=== PATIENT | female | born 1935 | race Caucasian/White ===

== ENCOUNTER → 2019-06-08 09:30 | Outpatient (BNVA) | payer MEDICARE, MEDICAID, SELFPAY | PROVIDERS: PCP Family Medicine; Referring Provider Family Medicine; Visit Provider Specialist | DX: M25.532 Pain in left wrist (principal) | CPT/HCPCS: 73110 ==

== ENCOUNTER 2019-06-08 10:48 | Outpatient (CLI) | payer MEDICARE, MEDICAID, SELFPAY | END 2019-06-08 10:49 | disposition home or self-care (01) | LOC: SPT 10:49 | PROVIDERS: PCP Family Medicine; Visit Provider Specialist | DX: S52.572D Other intraarticular fracture of lower end of left radius, subsequent encounter for closed fracture with routine healing (principal); X58.XXXD Exposure to other specified factors, subsequent encounter | CPT/HCPCS: L3982 ==

== ENCOUNTER → 2019-06-29 10:23 | Outpatient (BNVA) | payer MEDICARE, MEDICAID, SELFPAY | PROVIDERS: PCP Family Medicine; Visit Provider Specialist | DX: S62.002A Unspecified fracture of navicular [scaphoid] bone of left wrist, initial encounter for closed fracture (principal); X58.XXXA Exposure to other specified factors, initial encounter | CPT/HCPCS: 73110 ==

== ENCOUNTER → 2019-07-16 10:27 | Outpatient (BNVA) | payer MEDICARE, MEDICAID, SELFPAY | PROVIDERS: PCP Family Medicine; Visit Provider Specialist | DX: S62.015A Nondisplaced fracture of distal pole of navicular [scaphoid] bone of left wrist, initial encounter for closed fracture (principal); S52.572A Other intraarticular fracture of lower end of left radius, initial encounter for closed fracture; X58.XXXA Exposure to other specified factors, initial encounter | CPT/HCPCS: 73110 ==

== ENCOUNTER 2019-10-25 06:02 | Inpatient (IN) | payer MEDICARE, MEDICAID, SELFPAY ==
[2019-10-25] VITALS (32 sets, daily range): BP systolic 101–206; BP diastolic 47–104; PULSE 69–85; RESP 10–24; TEMP 36.3–37.4; O2SAT 75–100
--- NOTE | 2019-10-25 | SCC_ITS ---
Procedure Done: Aborted right bipolar hip arthroplasty with open reduction of intertrochanteric subtrochanteric and neck fractures and conversion to Valery trochanteric gamma nail 99.7 seconds of fluoroscopic guidance, for a cumulative dose of 11.35 mGy, was provided to Dr. Barnett by the radiology department. C-arm images of the RIGHT hip were saved for the patient's permanent record. ADONAYD
--- NOTE | 2019-10-25 06:08 | CTR_ITS ---
PROCEDURE INFORMATION: Exam: CT Head Without Contrast Exam date and time: 10/25/2019 8:25 AM Age: 84 years old Clinical indication: Injury or trauma; Fall; Initial encounter; Blunt trauma (contusions or hematomas); Patient HX: Best images possible TECHNIQUE: Imaging protocol: Computed tomography of the head without contrast. Radiation optimization: All CT scans at this facility use at least one of these dose optimization techniques: automated exposure control; mA and/or kV adjustment per patient size (includes targeted exams where dose is matched to clinical indication); or iterative reconstruction. COMPARISON: CT head wo con* [id number] 03/01/2016 5:29 PM RADIATION DOSE METRICS: Total DLP: 2196.56 mGy-cm FINDINGS: Brain: There is moderate hypodensity of the periventricular white matter. This is nonspecific, but a likely cause is small vessel ischemic disease. Small chronic lacunar infarct in the right thalamic region. Small chronic lacunar infarct in the left subinsular region. Small to moderate area of encephalomalacia in the right cerebellar hemisphere, consistent with remote insult (such as chronic infarct). Small area of encephalomalacia in the left cerebellar hemisphere, consistent with remote insult (such as chronic infarct). No abnormal intra-axial or extra-axial fluid collections are identified. There is no midline shift. No intracranial hemorrhage identified. Ventricles: The ventricles and sulci are moderately and diffusely prominent, compatible with global brain volume loss. Bones/joints: Unremarkable as visualized. Sinuses: Visualized sinuses are unremarkable. No fluid levels. Mastoid air cells: Visualized mastoid air cells are well aerated. Soft tissues: Moderate scalp hematoma in the high right frontal region. CT/CT head wo con* [id number] IMPRESSION: 1. No acute intracranial process identified. Radiation Dose CTDIVOL = (mGy): DLP = 2196.56 (mGy-cm)
--- NOTE | 2019-10-25 06:10 | XRR_ITS ---
PROCEDURE INFORMATION: Exam: XR Right Hip with Pelvis when Performed Exam date and time: 10/25/2019 7:31 AM Age: 84 years old Clinical indication: Injury or trauma; Fall; Initial encounter; Blunt trauma (contusions or hematomas); Right; Hip; Additional info: Fall/ possible hip FX TECHNIQUE: Imaging protocol: XR Right hip with pelvis when performed. Views: 2 or 3 views. COMPARISON: CT abdomen pelvis wo con [id number] 06/05/2017 11:47 PM FINDINGS: Bones/joints: There is an intertrochanteric fracture of the right femur. Severe varus angulation. Marked superior displacement of the distal fragment relative to the proximal fragment. No hip dislocation. Soft tissues: No subcutaneous gas or radiopaque foreign body identified. XR/XR hip RT 2-3V wo/w pel* [id number] IMPRESSION: 1. There is an intertrochanteric fracture of the right femur. Severe varus angulation. Marked superior displacement of the distal fragment relative to the proximal fragment.
--- NOTE | 2019-10-25 06:18 | CTR_ITS ---
PROCEDURE INFORMATION: Exam: CT Cervical Spine Without Contrast Exam date and time: 10/25/2019 8:25 AM Age: 84 years old Clinical indication: Injury or trauma; Fall; Initial encounter; Blunt trauma; Patient HX: Best images possible TECHNIQUE: Imaging protocol: Computed tomography images of the cervical spine without contrast. Radiation optimization: All CT scans at this facility use at least one of these dose optimization techniques: automated exposure control; mA and/or kV adjustment per patient size (includes targeted exams where dose is matched to clinical indication); or iterative reconstruction. COMPARISON: CT Cervical Spine wo* [id number] 09/08/2015 6:41 PM RADIATION DOSE METRICS: Total DLP: 591.8 mGy-cm FINDINGS: Vertebrae: There is reversal of the normal cervical lordosis. This may be positional or due to muscle spasm. There is otherwise normal alignment of the cervical spine. No fractures or dislocations identified. Vertebral body heights are well maintained throughout. Discs/Spinal canal/Neural foramina: Mild degenerative disc disease at C5-C6 and C6-C7. On the right side, mild facet degenerative joint disease at C3-C4 and C4-C5. On the left side, mild facet degenerative joint disease at C2-C3, C4-C5, C5-C6, and C6-C7. Facet joint fusion at C7-T1. Mild facet degenerative joint disease at T1-T2. The bony spinal canal is patent. Soft tissues: No prevertebral soft tissue swelling identified. Lungs: Lung apices are unremarkable as visualized. CT/CT cervical spin wo con* [id number] IMPRESSION: 1. No fractures or dislocations identified involving the cervical spine. Radiation Dose CTDIVOL = (mGy): DLP = 591.8 (mGy-cm)
[2019-10-25] MEDS: HYDROmorphone 1 mg/mL INJ 1 mL 0.5 MG IVP ×3 (06:25→10:34)
[2019-10-25] MEDS: ondansetron 2 mg/ML SDV 2 mL 4 MG IVP (06:25)
[2019-10-25 06:34] LABS: Hematocrit 36.6 % (37.0-47.0); Hemoglobin 11.6 g/dL (11.5-15.3); Mean Corpuscular HGB Conc 31.7 g/dL (30.0-36.0); Mean Corpuscular Hemoglobin 29.4 pg (28.0-34.0); Mean Corpuscular Volume 92.7 fL (81-99); Mean Platelet Volume 10.2 fL (7.4-10.4); Platelet Count 178 10^3/cmm (130-400); Red Blood Count 3.95 10^6/uL (4.1-5.3); Red Cell Distribution Width 12.6 % (12.1-15.1); White Blood Count 7.2 10^3/uL (4.0-10.0)
[2019-10-25 06:39] LABS: INR 0.99 (0.8-1.2)
[2019-10-25 06:44] LABS: Alanine Aminotransferase 10 U/L (0-33); Albumin Level 4.1 g/dL (3.5-5.2); Alkaline Phosphatase 112 IU/L (35-105); Anion Gap 20.6 (5-19); Aspartate Amino Transferase 14 U/L (0-32); Blood Urea Nitrogen 29 mg/dL (8-23); Calcium 9.5 mg/dL (8.5-10.5); Carbon Dioxide 21 mmol/L (22-29); Chloride 104 mmol/L (98-107); Glucose 168 mg/dL (65-115); Magnesium 1.7 mg/dL (1.7-2.3); Osmolality Calculated 293 mOsm/kg (285-295); Potassium 4.6 mmol/L (3.5-5.1); Sodium 141 mmol/L (136-145); Total Bilirubin 0.4 mg/dL (0.15-1.2); Total Protein 7.1 g/dL (6.6-8.7)
--- NOTE | 2019-10-25 07:00 | PC.NURSE ---
Assumed care at 0700
--- NOTE | 2019-10-25 07:25 | ED_ITS ---
HPI - Extremity Problem General: Chief complaint: Extremity Injury, Lower Stated complaint: POSSIBLE HIP FRACTURE History of Present Illness: HPI Narrative: Ms. Hoffmann is an 84-year-old female with severe dementia and arrives in a great deal of pain by EMS. Report from EMS is the patient was found on the floor and believed to have rolled out of her bed landing on her right side. She has an obvious deformity and appears to be in a great deal of pain to her right hip. She received 100 mcg of fentanyl in route with minimal improvement in her pain. The patient is not cooperative and cannot communicate any other complaints. There is no other sign of trauma anywhere else. Review of Systems General: Reports: ROS unobtainable due to mental status PFSH ED PFSH: Medical History Alzheimer disease Diabetes mellitus Family History Mother Cancer Denies family history of Diabetes CAD (coronary artery disease) Clotting disorder Dementia Hyperlipidemia Psychiatric illness Chronic kidney disease (CKD) Suicide Anesthesia complication Bleeding disorder Family history of premature coronary artery disease Lung disease Hypertension Stroke Social History Smoking and tobacco status: unknown if ever smoked Second hand smoke exposure: No Alcohol intake: former Housing: Assisted Living Facility Physical Exam Const: COMMON NORMALS: healthy appearing and well nourished EXAM LIMITATIONS: other limitations (Dementia and patient in pain) GENERAL APPEARANCE: frail appearing ORIENTATION/CONSCIOUSNESS: Yes awake HENMT: COMMON NORMALS: normocephalic, atraumatic, hearing grossly normal bilaterally, external ears normal, EAC's normal, Normal external nose present and moist oral mucous membranes HEAD & SCALP: normal to inspection, normocephalic and atraumatic FACE & SINUS: normal facial exam and face symmetric NOSE: Normal external nose present and Normal nares present EXTERNAL EAR: Yes external ears normal EXTERNAL AUDITORY CANAL: EAC's normal MOUTH: Normal oral and palatal mucosa present, lip normal and tongue normal Eye: COMMON NORMALS: Equal, round and reactive pupils present, EOMs intact bilaterally, conjunctivae normal and no scleral icterus GENERAL EYE: appearance normal, both eyes and all related structures ALIGNMENT: Yes alignment normal PERIORBITAL: periorbital findings normal EYELID: eyelids normal CONJUNCTIVA: Yes conjunctivae normal SCLERA: sclerae normal PUPIL: Yes Equal, round and reactive pupils present Neck/C-Spine: COMMON NORMALS: full ROM, no lymphadenopathy, supple, no meningeal signs and no JVD GENERAL: Yes normal visual inspection and Yes trachea midline CERVICAL SPINE: Yes cervical ROM normal Chest: COMMONS NORMALS: normal inspection of the chest and normal palpation of entire chest wall Resp: COMMON NORMALS: normal respiratory effort, No retractions, No use of accessory muscles and clear to auscultation bilaterally EFFORT & INSPECTION: Yes able to speak in complete sentences AUSCULTATION: clear to auscultation bilaterally, no crackles, no rales, no rhonchi and no wheezes Cardio: COMMON NORMALS: no JVD, regular rate, regular rhythm, S1 normal heart sound present, S2 normal heart sound present, No gallops present (Cardio), No clicks present (Cardio), No murmurs present (Cardio) and No rub (Cardio) RATE: regular rate RHYTHM: regular rhythm HEART SOUNDS: S1 normal heart sound present, S2 normal heart sound present, no click, no gallops, no murmurs and no rubs GI: COMMON NORMALS: Soft to palpation, non-tender, No hepatosplenomegaly present and no masses PALPATION: Yes Soft to palpation, No Tenderness to palpation present (GI), No Guarding due to palpation present (GI), No Rigid due to palpation, Yes No hepatosplenomegaly present, No Hernia present, No Palpable mass present and No Pulsatile mass present : COMMON NORMALS: Yes no CVA tenderness BLADDER/KIDNEY EXAM: Yes no CVA tenderness EXTERNAL FEMALE EXAM: No Hernia present Back/Pelvis: COMMON NORMALS: no CVA tenderness, thoracic and lumbar spine normal to inspection, no thoracic nor lumbar tenderness and thoraco-lumbar ROM normal Extremity: NARRATIVE EXTREMITY EXAM: Extremity exam is unremarkable other than to the right hip. Right hip is with gross deformity and pain on palpation. Patient is neurovascular intact distal to this. Neuro: HENRI COMA SCALE: document GCS findings Henri coma scale eye op ening: Spontaneous Henri coma scale verbal response: Words [place] coma scale motor response: Localising Henri coma scale total score: 12 COMMON NORMALS: CN's II-XII intact bilaterally, moves all extremities, no focal motor deficits and no sensory deficits noted MENINGEAL SIGNS: Yes no meningeal signs Skin: COMMON NORMALS: no rashes or lesions noted, turgor normal, no jaundice, no petechiae and no mottling GENERAL SKIN EXAM: no rashes or lesions noted and turgor normal Course Vital Signs: Vital signs: Vital Signs Temperature 97.5 F L 10/25/19 06:07 Pulse Rate 85 10/25/19 09:40 Respiratory Rate 14 10/25/19 09:40 Blood Pressure 186/74 10/25/19 09:40 Pulse Oximetry 93 10/25/19 09:40 MDM - Extremity (Nontraumatic) MDM Narrative: Medical decision making narrative: The case was reviewed with Dr. Lo, he has been here in the ER and seen the patient. He is okay with the patient going to the floor. Dr. Shoemaker will plan on surgery today. Family cannot be reached at this time. I believe that this is an emergency and the patient should go to surgery as soon as possible. She has intractable pain. She cannot move in the bed without severe pain. Narcotic analgesia only last temporarily and with increased sedation she is mildly hypoxic at times. I believe the safest way to progress at this time is to take her to surgery to secure the fracture for pain relief. Lab Data: Attestation: I reviewed the patient's lab results. Labs: Lab Results 10/25/19 10/25/19 10/25/19 Range/Units 06:30 06:30 06:30 WBC 7.2 (4.0-10.0) 10^3/ uL RBC 3.95 L (4.1-5.3) 10^6/u L Hgb 11.6 (11.5-15.3) g/dL Hct 36.6 L (37.0-47.0) % MCV 92.7 (81-99) fL MCH 29.4 (28.0-34.0) pg MCHC 31.7 (30.0-36.0) g/dL RDW 12.6 (12.1-15.1) % Plt Count 178 (130-400) 10^3/c mm MPV 10.2 (7.4-10.4) fL Total Counted 100 (0-100) Segmented Neutroph ils 66 % Lymphocytes (Manua l) 28 % Monocytes (Manual) 2.0 % Absolute Monocytes 0.1 (0.1-0.6) 10^3/c mm Eosinophils (Manua l) 3 % Absolute Eosinophi ls 0.2 (0.0-0.7) 10^3/c mm Basophils (Manual) 1.0 % Absolute Basophils 0.1 (0.0-0.2) 10^3/c mm Platelet Estimate Normal (Normal) PT 13.40 H (10.5-13.3) SECO NDS INR 0.99 (0.8-1.2) Sodium 141 (136-145) mmol/L Potassium 4.6 (3.5-5.1) mmol/L Chloride 104 (98-107) mmol/L Carbon Dioxide 21 L (22-29) mmol/L Anion Gap 20.6 H (5-19) BUN 29 H (8-23) mg/dL Creatinine 1.1 H (0.5-0.9) mg/dL Glucose 168 H (65-115) mg/dL Calculated Osmolal ity 293 (285-295) mOsm/k g Calcium 9.5 (8.5-10.5) mg/dL Magnesium 1.7 (1.7-2.3) mg/dL Total Bilirubin 0.4 (0.15-1.2) mg/dL AST 14 (0-32) U/L ALT 10 (0-33) U/L Alkaline Phosphata se 112 H (35-105) IU/L Total Protein 7.1 (6.6-8.7) g/dL Albumin 4.1 (3.5-5.2) g/dL Globulin 3.0 (1.3-4.6) g/dL Imaging Data^: Pelvis and Right Hip: My impression: Acute right femoral neck fracture CT Head: Radiologist's impression: [address] [address] [address] Scan Report Signed Patient: Lucia Hoffmann Unit #: [id number] : 1935 Age/Sex: 84 / F ADM Date: 10/25/19 Loc: ER Room/Bed: Attending Dr: Ordering Provider/Ordering MD: Priti Booker DO Date of Service: 10/25/19 Procedure(s): CT head wo con* [id number] Accession Number(s): [id number] Report Number: [id number] PROCEDURE INFORMATION: Exam: CT Head Without Contrast Exam date and time: 10/25/2019 8:25 AM Age: 84 years old Clinical indication: Injury or trauma; Fall; Initial encounter; Blunt trauma (contusions or hematomas); Patient HX: Best images possible TECHNIQUE: Imaging protocol: Computed tomography of the head without contrast. Radiation optimization: All CT scans at this facility use at least one of these dose optimization techniques: automated exposure control; mA and/or kV adjustment per patient size (includes targeted exams where dose is matched to clinical indication); or iterative reconstruction. COMPARISON: CT head wo con* [id number] 03/01/2016 5:29 PM RADIATION DOSE METRICS: Total DLP: 2196.56 mGy-cm FINDINGS: Brain: There is moderate hypodensity of the periventricular white matter. This is nonspecific, but a likely cause is small vessel ischemic disease. Small chronic lacunar infarct in the right thalamic region. Small chronic lacunar infarct in the left subinsular region. Small to moderate area of encephalomalacia in the right cerebellar hemisphere, consistent with remote insult (such as chronic infarct). Small area of encephalomalacia in the left cerebellar hemisphere, consistent with remote insult (such as chronic infarct). No abnormal intra-axial or extra-axial fluid collections are identified. There is no midline shift. No intracranial hemorrhage identified. Ventricles: The ventricles and sulci are moderately and diffusely prominent, compatible with global brain volume loss. Bones/joints: Unremarkable as visualized. Sinuses: Visualized sinuses are unremarkable. No fluid levels. Mastoid air cells: Visualized mastoid air cells are well aerated. Soft tissues: Moderate scalp hematoma in the high right frontal region. CT/CT head wo con* [id number] IMPRESSION: 1. No acute intracranial process identified. Radiation Dose CTDIVOL = (mGy): DLP = 2196.56 (mGy-cm) Dictated By: Chan Jackson MD Signed By: Chan Jackson MD Signed Date/Time: 10/25/19913 DD/ 2 CT Cervical Spine: Radiologist's impression: [address] [address] [address] Scan Report Signed Patient: Lucia Hoffmann [id number] [facility] 1935 [id number] Age/Sex: 84 / F ADM Date: 10/25/19 Loc: ER Room/Bed: Attending Dr: Ordering Provider/Ordering MD: Priti Booker DO Date of Service: 10/25/19 Procedure(s): CT cervical spin wo con* [id number] Accession Number(s): [id number] Report Number: [id number] PROCEDURE INFORMATION: Exam: CT Cervical Spine Without Contrast Exam date and time: 10/25/2019 8:25 AM Age: 84 years old Clinical indication: Injury or trauma; Fall; Initial encounter; Blunt trauma; Patient HX: Best images possible TECHNIQUE: Imaging protocol: Computed tomography images of the cervical spine without contrast. Radiation optimization: All CT scans at this facility use at least one of these dose optimization techniques: automated exposure control; mA and/or kV adjustment per patient size (includes targeted exams where dose is matched to clinical indication); or iterative reconstruction. COMPARISON: CT Cervical Spine wo* [id number] 09/08/2015 6:41 PM RADIATION DOSE METRICS: Total DLP: 591.8 mGy-cm FINDINGS: Vertebrae: There is reversal of the normal cervical lordosis. This may be positional or due to muscle spasm. There is otherwise normal alignment of the cervical spine. No fractures or dislocations identified. Vertebral body heights are well maintained throughout. Discs/Spinal canal/Neural foramina: Mild degenerative disc disease at C5-C6 and C6-C7. On the right side, mild facet degenerative joint disease at C3-C4 and C4-C5. On the left side, mild facet degenerative joint disease at C2-C3, C4-C5, C5-C6, and C6-C7. Facet joint fusion at C7-T1. Mild facet degenerative joint disease at T1-T2. The bony spinal canal is patent. Soft tissues: No prevertebral soft tissue swelling identified. Lungs: Lung apices are unremarkable as visualized. CT/CT cervical spin wo con* [id number] IMPRESSION: 1. No fractures or dislocations identified involving the cervical spine. Radiation Dose CTDIVOL = (mGy): DLP = 591.8 (mGy-cm) Dictated By: Chan Jackson MD Signed By: Chan Jackson MD Signed Date/Time: 0508 DD/ Discharge Plan Discharge Patient Disposition: Admitted As Inpatient Admit Provider: Johnson Lo Clinical Impression: Fracture of hip Qualifiers: Encounter type: initial encounter Fracture type: closed Laterality: right Qualified Code(s): S72.001A - Fracture of unspecified part of neck of right femur, initial encounter for closed fracture Condition: Stable Discharge Date/Time: 10/25/19 09:47 Coding Level of Care Code ED Batter Mixer for Chg Fwd Exam Comprehensive
[2019-10-25 07:30] LABS: Absolute Eosinophils 0.2 10^3/cmm (0.0-0.7); Absolute Segmented Neutrophil 4.7 10/cmm (1.6-7.1); Basophils Absolute 0.1 10^3/cmm (0.0-0.2); Eosinophils 3 %; Lymphocytes 28 %; Monocytes Absolute 0.1 10^3/cmm (0.1-0.6); Segmented Neutrophils 66 %; Total Cells Counted 100 (0-100)
[2019-10-25 07:31] LABS: Platelet Estimate Normal (Normal)
--- NOTE | 2019-10-25 07:33 | XRR_ITS ---
PROCEDURE INFORMATION: Exam: XR Chest, 1 View Exam date and time: 10/25/2019 7:33 AM Age: 84 years old Clinical indication: Injury or trauma; Fall; Initial encounter; Blunt trauma (contusions or hematomas); Injury details: RT hip FX; Prior surgery TECHNIQUE: Imaging protocol: XR of the chest Views: 1 view. COMPARISON: [place] Chest 1 [place] [id number] 06/05/2017 10:46 PM FINDINGS: Lungs: The lungs are clear bilaterally. Pulmonary vasculature within normal limits. Pleural space: No visible pneumothorax or pleural effusion. Heart/Mediastinum: Heart size upper limits of normal. Bones/joints: Median sternotomy wires are present. Left midthoracic pacemaker with leads overlying the right atrium and right ventricle. XR/XR chest 1V portable [id number] IMPRESSION: 1. No radiographic findings of acute cardiopulmonary disease.
[2019-10-25 08:07] LABS: Add Urine Microscopic? NO
[2019-10-25 08:10] LABS: Bilirubin Urine Neg (NEGATIVE); Blood Urine Neg (Negative); Glucose Urine UA Norm (Normal); Ketones Urine Negative (Negative); Leukocyte Esterase Urine Negative (Negative); Nitrate Urine Negative (Negative); Protein Urine Neg (Negative); Urine Appearance Clear (CLEAR); Urine Color Yellow (Yellow); Urobilinogen Urine Norm (Negative); pH Urine 5 (5-7)
--- NOTE | 2019-10-25 10:09 | P.HP_ITS ---
Providers/Chief Complaint Admitting Physician: Johnson Lo MD Primary Care Provider: Carolyne Keith MD Chief Complaint: POSSIBLE HIP FRACTURE History of Present Illness Lucia Hoffmann is a 84 year old female with past medical history of degenerative disorder, sick sinus syndrome post pacemaker implantation, history of possible TIA, type 2 diabetes mellitus, hypertension, hypothyroidism, post valve replacement not on anticoagulation, dementia who at baseline is living at a senior care right now, moderate cognitive impairment but is able to take care of some of her ADLs was sent in from senior care today after she had unwitnessed fall. History taken via phone from the nurses at senior care/[facility]. Patient at baseline is able to walk around on her own, take care of some of her ADLs, has baseline confusion and dementia with episodes of agitation who in her room today morning was found to have an unwitnessed fall after which she was complaining of pain in her hip so was sent to the ER. Work-up in the ER shows intertrochanteric fracture of the right femur, no acute injury found on CT cervical spine and CT head other than moderate scalp hematoma in right frontal region with her blood work showing hemoglobin of 11.6 creatinine of 1.1. In the ER patient was given around 2 mg of IV Dilaudid in divided doses after which he became mildly somnolent and had an episode of hypoxia which was taken care of by 3 L nasal cannula and her saturation improved to more than 92%. Review of Systems General: Reports: ROS unobtainable due to mental status Medications/Allergies Home Medications Medication Instructions Recorded Confirmed Last Taken Type Fast Form Cock up Splint #1 each 06/08/19 07/16/19 Unknown Rx acetaminophen 325 mg capsule 650 mg PO Q6H PRN 06/08/19 10/25/19 10/21/19 19:45 History alprazolam 0.25 mg tablet 0.25 mg PO BID 06/08/19 10/25/19 10/24/19 19:05 History alprazolam 0.5 mg tablet 0.5 mg PO .PRN tab 06/08/19 10/25/19 10/08/19 20:22 History alprazolam 0.5 mg tablet 0.5 mg PO ONCE tab 06/08/19 10/25/19 10/24/19 07:20 History bisacodyl 10 mg rectal suppository 10 mg IN ONCE 06/08/19 10/25/19 02/24/19 20:18 History citalopram 10 mg tablet 10 mg PO ONCE 06/08/19 10/25/19 10/24/19 07:19 History lisinopril 10 mg tablet 10 mg PO BID 06/08/19 10/25/19 10/24/19 07:19 History metoprolol succinate 50 mg 50 mg PO BID 06/08/19 10/25/19 10/24/19 07:20 History tablet,extended release 24 hr pantoprazole 40 mg tablet,delayed 40 mg PO ONCE 06/08/19 10/25/19 10/25/19 04:13 History release quetiapine 50 mg tablet 50 mg PO TID 06/08/19 10/25/19 10/24/19 19:05 History tramadol 50 mg tablet 50 mg PO Q6H PRN 06/08/19 10/25/19 10/23/19 19:07 History honey [MediHoney (honey)] 1 applic TOPICAL DAILY 10/25/19 10/25/19 10/07/19 07:48 History lanolin arsaxoq-si-h.pet-ceres 1 applic TOPICAL BID 10/25/19 10/25/19 10/24/19 18:31 History [Minerin Creme] levothyroxine 150 mcg PO DAILY 10/25/19 10/25/19 10/25/19 04:13 History sodium phosphates [Fleet Enema] 118 ml IN DAILY PRN 10/25/19 10/25/19 Unknown History Allergies Allergy/AdvReac Type Severity Reaction Status Date / Time povidone-iodine Allergy Unknown Verified 07/16/19 10:02 [From Betadine] soap [From Betadine] Allergy Unknown Verified 07/16/19 10:02 PFSH Acute PFSH: Medical History (Updated 10/25/19 @ 11:56 by Johnson Lo MD) Alzheimer disease Diabetes mellitus Distal radius fracture DJD (degenerative joint disease) History of heart attack HTN (hypertension) Hypothyroidism Pacemaker Scaphoid fracture, wrist, closed Sick sinus syndrome TIA (transient ischemic attack) Type 2 diabetes mellitus Surgical History (Updated 10/25/19 @ 10:19 by Johnson Lo MD) History of heart valve replacement Hx of cholecystectomy Family History Mother Cancer Denies family history of Diabetes CAD (coronary artery disease) Clotting disorder Dementia Hyperlipidemia Psychiatric illness Chronic kidney disease (CKD) Suicide Anesthesia complication Bleeding disorder Family history of premature coronary artery disease Lung disease Hypertension Stroke Social History Smoking and tobacco status: unknown if ever smoked Second hand smoke exposure: No Alcohol intake: former Housing: Assisted Living Facility Vitals/I&O/Wt Last Vital Signs Temp 97.5 F L 10/25/19 06:07 Pulse 85 10/25/19 09:40 Resp 14 10/25/19 09:40 BP 186/74 10/25/19 09:40 Pulse Ox 93 10/25/19 09:40 Physical Exam Narrative: EXAM NARRATIVE: General: Acute distress because of pain, confused HEENT: PERRLA, pupils bilaterally equal and reactive Chest: Normal vesicular breath sounds, no added sounds, equal good air entry bilaterally CVS: S1-S2 regular, ejection systolic murmur at the aortic area, no tachycardia, no gallops, no rubs Abdomen: Soft, nontender, no organomegaly, bowel sounds present Neuro: No focal deficits, no facial deformity, AO x3, power 5/5 in all limbs Urinary Catheter Management^: Campos: Cath Placed During This Visit: yes Urinary Catheter Date of Insertion: 10/25/19 Urinary Catheter Time of Insertion: 08:02 Data : 10/25/19 06:30 10/25/19 06:30 A&P Assessment and plan (1) Fracture of hip: Status: Acute Qualifiers: Encounter type: initial encounter Fracture type: closed Laterality: right Qualified Code(s): S72.001A - Fracture of unspecified part of neck of right femur, initial encounter for closed fracture (2) Type 2 diabetes mellitus: Status: Acute (3) HTN (hypertension): Status: Acute (4) Pacemaker: Status: Acute (5) Alzheimer disease: Status: Acute Additional A&P Information Fracture hip: Most likely would need ORIF. Dr. Barnett has been consulted. Dilaudid 0.5 mg IV every 6 hourly for pain along with Tylenol 1 g IV every 8 hourly. Avoid oversedation. Physical therapy, perioperative antibiotics, anticoagulation as per orthopedics. Type 2 diabetes mellitus: Hold off on OHS. Insulin sliding scale. Hypertension: Blood pressure elevated in the ER most likely reactionary to pain. For now we will continue on home dose of metoprolol, lisinopril. We will give metoprolol right now and hold off on lisinopril for possible surgery next couple of hours. History of sick sinus syndrome on pacemaker: Telemetry. Alzheimer's/dementia/agitation: Continue chronic medications like alprazolam, citalopram, Seroquel. Hypothyroidism: Check TSH. Continue with home dose of levothyroxine. Check free T3, free T4, lipid panel, HbA1c, iron panel. As per the records from the senior care patient is full code. No anticoagulation for now for possible surgery. Foot pumps. N.p.o. for now. Attestations Medical Necessity Statement*: More than 2 midnights for fracture hip Time Spent in Patient Care: Greater than 35 minutes Coding Level of Care Code Acute Patient Support Partner for [facility] Joshua Diagnoses Fracture of hip S72.001A Encounter type: initial encounter Fracture type: closed Laterality: right Type 2 diabetes mellitus E11.9 HTN (hypertension) I10 Pacemaker Z95.0 Alzheimer disease G30.9; F02.80
[2019-10-25] MEDS: sodium chlor 0.9% + KCl 20 mEq 20 MEQ/1,000 ML BAG 100 MEQ IV (10:35)
[2019-10-25 11:14] LABS: Iron 74 ug/dL (37-145); NT Pro B Type Natriuretic Pept 1435 pg/mL (0-450); Percent Saturation 27.5 % (20-50); Thyroid Stimulating Hormone 8.62 uIU/mL (0.27-4.20); Total Iron Binding Capacity 269 mcg/dl; Unsaturated Iron Binding 195 ug/dL (112-347)
--- NOTE | 2019-10-25 11:51 | P.CONIM_ITS ---
Providers/Reason For Consult Consulting Physican/Specialty*: Dr. Rose Barnett - Orthopedics Reason for Consult*: Right subcapital hip fracture Requesting Physcian: Dr. Booker?emergency department Attending Physician: Johnson Lo MD Primary Care Provider: Carolyne Keith MD History of Present Illness History of Present Illness Lucia Hoffmann is a 84 year old female who resides full-time in a senior living facility secondary to severe dementia. The patient had an unwitnessed fall today, and she was found on the floor. It was believed that she rolled out of bed and landed on her right side. She had an obvious deformity following this fall. While in the emergency department, she was found to have severe pain to the right hip. If there was even question of whether or not there was able to complete their work-up of a head CT and neck images secondary to this being an unwitnessed fall. They were able to complete this. And the patient was cleared for surgical intervention. She was admitted to the hospitalist service. Review of Systems General: Reports: ROS unobtainable due to mental status (Patient is severely demented. She comes from a skilled facility where she resides chronically secondary to severe dementia.) Meds/Allergies Home Medications and Allergies Home Medications Medication Instructions Recorded Confirmed Last Taken Type Fast Form Cock up Splint #1 each 06/08/19 07/16/19 Unknown Rx acetaminophen 325 mg capsule 650 mg PO Q6H PRN 06/08/19 10/25/19 10/21/19 19:45 History alprazolam 0.25 mg tablet 0.25 mg PO BID 06/08/19 10/25/19 10/24/19 19:05 History alprazolam 0.5 mg tablet 0.5 mg PO .PRN tab 06/08/19 10/25/19 10/08/19 20:22 History alprazolam 0.5 mg tablet 0.5 mg PO ONCE tab 06/08/19 10/25/19 10/24/19 07:20 History bisacodyl 10 mg rectal suppository 10 mg [place] ONCE 06/08/19 10/25/19 02/24/19 20:18 History citalopram 10 mg tablet 10 mg PO ONCE 06/08/19 10/25/19 10/24/19 07:19 History lisinopril 10 mg tablet 10 mg PO BID 06/08/19 10/25/19 10/24/19 07:19 History metoprolol succinate 50 mg 50 mg PO BID 06/08/19 10/25/19 10/24/19 07:20 History tablet,extended release 24 hr pantoprazole 40 mg tablet,delayed 40 mg PO ONCE 06/08/19 10/25/19 10/25/19 04:13 History release quetiapine 50 mg tablet 50 mg PO TID 06/08/19 10/25/19 10/24/19 19:05 History tramadol 50 mg tablet 50 mg PO Q6H PRN 06/08/19 10/25/19 10/23/19 19:07 History honey [MediHoney (honey)] 1 applic TOPICAL DAILY 10/25/19 10/25/19 10/07/19 07:48 History lanolin fazqtlm-gz-m.pet-ceres 1 applic TOPICAL BID 10/25/19 10/25/19 10/24/19 18:31 History [Minerin Creme] levothyroxine 150 mcg PO DAILY 10/25/19 10/25/19 10/25/19 04:13 History sodium phosphates [Fleet Enema] 118 ml [place] DAILY PRN 10/25/19 10/25/19 Unknown History Allergies Allergy/AdvReac Type Severity Reaction Status Date / Time povidone-iodine Allergy Unknown Verified 07/16/19 10:02 [From Betadine] soap [From Betadine] Allergy Unknown Verified 07/16/19 10:02 Current Medications Current Medications Generic Name Dose Route Start Last Admin Trade Name Freq PRN Reason Stop Dose Admin Potassium Chloride/Sodium Chloride 20 meq in 1,000 mls @ 100 mls/hr 10/25/19 10:15 10/25/19 10:35 Sodium Chlor 0.9% + Kcl 20 Meq IV 100 mls/hr .Q10H BRENDON Administration PFSH Acute PFSH: Medical History Alzheimer disease Diabetes mellitus DJD (degenerative joint disease) History of heart attack HTN (hypertension) Hypothyroidism Pacemaker Sick sinus syndrome TIA (transient ischemic attack) Type 2 diabetes mellitus Surgical History History of heart valve replacement Hx of cholecystectomy Family History Mother Cancer Denies family history of Diabetes CAD (coronary artery disease) Clotting disorder Dementia Hyperlipidemia Psychiatric illness Chronic kidney disease (CKD) Suicide Anesthesia complication Bleeding disorder Family history of premature coronary artery disease Lung disease Hypertension Stroke Social History Smoking and tobacco status: unknown if ever smoked Second hand smoke exposure: No Alcohol intake: former Housing: Assisted Living Facility Vitals/I&O/Wt Last Vital Signs Temp 97.6 F 10/25/19 11:36 Pulse 70 10/25/19 11:36 Resp 20 H 10/25/19 11:36 BP 175/82 10/25/19 11:36 Pulse Ox 96 10/25/19 11:36 Weight last 48 hrs Weight 160 lb 8 oz Physical Exam Narrative: EXAM NARRATIVE: Patient is very demented, and she is unable to participate with physical exam or answer questions. Const: COMMON NORMALS: average body habitus; negative for patient oriented x3 EXAM LIMITATIONS: altered mental status GENERAL APPEARANCE: in distress ORIENTATION/CONSCIOUSNESS: Yes confused; not oriented to person, not oriented to place and not oriented to time HENMT: COMMON NORMALS: normocephalic and atraumatic HEAD & SCALP: normocephalic and atraumatic Chest: COMMONS NORMALS: normal inspection of the chest Resp: COMMON NORMALS: normal respiratory effort EFFORT & INSPECTION: Yes symmetric chest movement Extremity: RIGHT LOWER EXTREMITY: Yes hip joint (No significant ecchymosis) Right hip: Yes inspection, Yes palpation (Tender to palpation over the right hip) and Yes ROM (Severe tenderness with any range of motion) Neuro: COMMON NORMALS: negative for patient oriented x3 SENSORIUM/ORIENTATION: No oriented to person, No oriented to place and No oriented to time Skin: COMMON NORMALS: no rashes or lesions noted GENERAL SKIN EXAM: no rashes or lesions noted Urinary Catheter Management^: Campos: Cath Placed During This Visit: yes Urinary Catheter Date of Insertion: 10/25/19 Urinary Catheter Time of Insertion: 08:02 A&P Assessment and plan (1) Subcapital fracture of right hip: Patient was admitted through the emergency department today following an unwitnessed fall at the skilled facilities where she resides. Reportedly, the patient was found on the floor beside her bed. It is felt that she rolled from the bed onto the floor. She had severe pain, and she was unable to ambulate. Typically, the patient does not ambulate, but she is able to transfer. When she arrived the emergency department, the patient had severe pain to any movement. In fact, there was concern that she would require intubation to obtain a CT to rule out injury to her head as this was an unwitnessed fall. The studies were able to be obtained without intubation. The patient was admitted, but secondary to her severe pain and obvious distress with any motion, we elected to proceed with operative intervention as soon as possible. The consent was obtained from the patient's power of employment law attorney as well as her [id number]. Questions were answered for them. The patient will proceed to surgery today. Status: Acute Qualifiers: Encounter type: initial encounter Fracture type: closed Qualified Code(s): S72.011A - Unspecified intracapsular fracture of right femur, initial encounter for closed fracture Consult Attestations Medical Necessity Statement: Patient will require inpatient admission to manage her subcapital hip fracture. Determination of return to skilled facility will be made by the hospitalist service. Coding Level of Care Code Acute Tankage Supervisor for [facility] Diagnoses Subcapital fracture of right hip S72.011A Encounter type: initial encounter Fracture type: closed
--- NOTE | 2019-10-25 11:56 | ANES.PREANE2 ---
Pre-Anesthetic Assessment Pre-Anesthetic Assessment: Height/Weight: Height 1.6 m Weight 72.802 kg Temp Pulse Resp BP Pulse Ox 97.6 F 70 20 H 175/82 96 10/25/19 11:36 10/25/19 11:36 10/25/19 11:36 10/25/19 11:36 10/25/19 11:36 Preop Diagnosis: Right subcapital hip fracture Proposed Procedure: Operation Date: 10/25/19 12:00 Proposed Procedures p Hemiarthroplasty Hip(Right) - Rose Barnett MD Social: Social History: No alcohol and No tobacco Exam: Pre-Anes Outpt Exam: clear to auscultation bilaterally and regular rate & rhythm Airway: Submandibular: WNL Cervical ROM: WNL MP: 3 Dentition: False (upper and lower) History/ROS: No significant history except as noted Pulmonary: Pulmonary: None reported CV/HEM: CV/HEM: Arrythmia (SSS), CAD and NV : : None reported Hepatic: Hepatic: None reported GI: GI: GERD Metabolic: Metabolic: DM, Hyperlipidemia and Thyroid Musc/skel: Musc/skel: Lower Back Pain, OA/DJD and Weakness Neuropsych: Neuropsych: Anxiety and Dementia (severe) Anesthetic Plan: ASA status: 4E Anesthesia: Anesthesia Evaluation and General Risk of > 500 ml blood loss (7ml/kg in children): No Meds/Allergies Current Medications: Current Medications Generic Name Dose Route Start Last Admin Trade Name Freq PRN Reason Stop Dose Admin Potassium Chloride /Sodium Chloride 20 meq in 1,000 m ls @ 100 mls/hr 10/25/19 10:15 10/25/19 10:35 Sodium Chlor 0.9 % + Kcl 20 Meq IV 100 mls/hr .Q10H BRENDON Administration PFSH Anesthesia PFSH: Medical History Alzheimer disease Diabetes mellitus Distal radius fracture DJD (degenerative joint disease) History of heart attack HTN (hypertension) Hypothyroidism Pacemaker Scaphoid fracture, wrist, closed Sick sinus syndrome TIA (transient ischemic attack) Type 2 diabetes mellitus Surgical History History of heart valve replacement Hx of cholecystectomy Family History Mother Cancer Denies family history of Diabetes CAD (coronary artery disease) Clotting disorder Dementia Hyperlipidemia Psychiatric illness Chronic kidney disease (CKD) Suicide Anesthesia complication Bleeding disorder Family history of premature coronary artery disease Lung disease Hypertension Stroke Social History Smoking and tobacco status: unknown if ever smoked Second hand smoke exposure: No Alcohol intake: former Housing: Assisted Living Facility Data Anesthesia CBC & Chem 7: 10/25/19 06:30 10/25/19 06:30 Other Labs: Laboratory Results - last 48 hr 10/25/19 10/25/19 10/25/19 06:30 06:30 06:30 WBC 7.2 RBC 3.95 L Hgb 11.6 Hct 36.6 L MCV 92.7 MCH 29.4 MCHC 31.7 RDW 12.6 Plt Count 178 MPV 10.2 Total Counted 100 Segmented Neutrophils 66 Lymphocytes (Manual) 28 Monocytes (Manual) 2.0 Absolute Monocytes 0.1 Eosinophils (Manual) 3 Absolute Eosinophils 0.2 Basophils (Manual) 1.0 Absolute Basophils 0.1 Platelet Estimate Normal PT 13.40 H INR 0.99 Sodium 141 Potassium 4.6 Chloride 104 Carbon Dioxide 21 L Anion Gap 20.6 H BUN 29 H Creatinine 1.1 H Glucose 168 H Calculated Osmolality 293 Calcium 9.5 Magnesium 1.7 Iron TIBC % Saturation Unsat Iron Binding Total Bilirubin 0.4 AST 14 ALT 10 Alkaline Phosphatase 112 H NT-Pro-B Natriuret Pep Total Protein 7.1 Albumin 4.1 Globulin 3.0 TSH Urine Color Urine Appearance Urine pH Ur Specific [place] Urine Protein Urine Glucose (UA) Urine Ketones Urine Blood Urine Nitrate Urine Bilirubin Urine Urobilinogen Ur Leukocyte Esterase Blood Type Rho(D) Type Antibody Screen 10/25/19 10/25/19 10/25/19 06:30 07:20 07:58 WBC RBC Hgb Hct MCV MCH MCHC RDW Plt Count MPV Total Counted Segmented Neutrophils Lymphocytes (Manual) Monocytes (Manual) Absolute Monocytes Eosinophils (Manual) Absolute Eosinophils Basophils (Manual) Absolute Basophils Platelet Estimate PT INR Sodium Potassium Chloride Carbon Dioxide Anion Gap BUN Creatinine Glucose Calculated Osmolality Calcium Magnesium Iron 74 TIBC 269 % Saturation 27.5 Unsat Iron Binding 195 Total Bilirubin AST ALT Alkaline Phosphatase NT-Pro-B Natriuret Pep 1435 H Total Protein Albumin Globulin TSH 8.62 H Urine Color Yellow Urine Appearance Clear Urine pH 5 Ur Specific [place] 1.010 Urine Protein Neg Urine Glucose (UA) Norm Urine Ketones Negative Urine Blood Neg Urine Nitrate Negative Urine Bilirubin Neg Urine Urobilinogen Norm Ur Leukocyte Esterase Negative Blood Type O Positive Rho(D) Type Positive Antibody Screen Negative Cardiac Studies: No Data to Display
[2019-10-25] MEDS: sodium chloride 0.9% 1,000 ML 30 ML IV (12:26)
[2019-10-25] MEDS: vancomycin 1,000 MG in sodium chloride 0.9% 250 ML 250 MG IV (12:31)
[2019-10-25] MEDS: vancomycin 1,000 MG SDV 1000 MG XX (13:23)
--- NOTE | 2019-10-25 15:05 | P.OP_ITS ---
Operative Report Date of procedure: October 25, 2019 Pre-op Diagnosis: Right subcapital hip fracture Post-op diagnosis: other (Right intertrochanteric comminuted fracture with neck involvement) Post-op Findings: Right Impacted comminuted intertrochanteric hip fracture with involvement of the femoral neck as well. Procedure Done: Aborted right bipolar hip arthroplasty with open reduction of intertrochanteric subtrochanteric and neck fractures and conversion to [place] trochanteric gamma nail Implants: Gamma 3 trochanteric nail size 11 mm x 180 mm x 125 degrees with a lag screw size 10.5 mm x 90 mm and a distal locking screw size 5 mm x 37.5 mm Pathology: none sent Surgeon: Rose Barnett Anesthesia: General (Intubated, ASA 4E) Estimated blood loss (mL): 200 IV fluids (mL): 800 Urine output (mL): 1,000 Complications: None Findings: Upon opening and exposure for the bipolar hip arthroplasty, it became apparent that the femoral head still had a portion of the neck attached to it. There was comminution of the fracture down into the intertrochanteric and subtrochanteric areas which precluded use of a standard prosthesis to address this. Therefore, the decision was made to on impact the head and partial neck portion of the fracture and to proceed with a trochanteric gamma nail rather than proceeding with a bipolar hip arthroplasty. The other option would have been to close and return subsequently with a revision style prosthesis which was also not felt to be prudent given this lady's medical conditions and mental status. Condition: stable Disposition: PACU (Then to floor) Brief History: This 84-year-old severely demented woman presented to the emergency department after she was found on the floor by her bed at the longterm facility where she lives. The patient was found to have what appeared to be on x-ray subcapital hip fracture. The femoral head was visualized within the acetabulum. There was no evidence of a neck portion to this femoral head. The leg was significantly shortened with superior displacement of the greater trochanter. Therefore, the patient was scheduled for bipolar hip arthroplasty. Risks and complications were discussed with the family and questions were answered. Procedure: The patient was brought to the operating theater, and after undergoing adequate general anesthesia was transferred to the operating room table. The patient was placed in the full lateral position and held in place with the pegboard. Patient's right lower extremity was draped free and was subsequently prepped and further draped free. A surgical pause was performed prior to commencement of the surgical procedure. During the surgical pause, we confirmed the site and side of surgery as well as availability of equipment. Additionally, we confirmed preoperative surgical markings. X-rays are also reviewed during this time. Following the surgical pause, an incision was made centering over the greater trochanter continuing proximally and distally as necessary to allow access to the hip joint. Dissection continues to skin and soft tissue using scalpel. Incision was obtained using electrocautery. Tensor fascia jose was identified and incised longitudinally. Sciatic nerve was identified and protected throughout the surgical procedure. A Charnley U retractor was placed with care being taken to protect the sciatic nerve during placement. Evaluation of the hip at this time demonstrated there was a very large hematoma under pressure. This was evacuated. Upon further evaluation, there was noted to be a fracture which involve the entire greater trochanter and the femoral neck. It was difficult to palpate the femoral head, but it was noted to be within the acetabulum. Upon further palpation and rotation, a portion of the neck was still attached to the femoral head. This was impacted deeply into the proximal femur causing significant comminution of the proximal femoral shaft and intertrochanteric area. This was disimpacted and reduced with manual manipulation. Once this was accomplished, it became apparent that we would be unable to implant a standard hip stem. In order to address this with an implant , this would require revision equipment. Upon further evaluation, it was felt that we could control this fracture with a gamma nail. Therefore, plan was made to convert to a gamma nail. The wound was copiously irrigated. It was temporarily closed with 0 Vicryl in the fascial tissues in a running fashion and #1 Ethilon in the skin in a running fashion. This was covered with a large Tegaderm so that we could transfer the patient to the fracture table. The patient was transferred to the fracture table, positioned on the table and fluoroscopic guidance obtained throughout the surgical procedure. Prior to the commencement of the surgical procedure, a surgical pause was performed. At the time of the surgical pause, we again confirmed the site and side of surgery as well as preoperative surgical markings and appropriate and timely administration of IV antibiotics, vancomycin 1 g. Availability of equipment was also confirmed. Fluoroscopy was used to confirm the fracture was appropriately reduced in both AP and lateral planes. The previous incision was opened and this allowed access to the greater trochanter. It also allowed access for the lag screw. A separate incision would have to be made for the distal locking screw however. An awl was used to enter the greater trochanter and a guidewire was subsequently placed. Once the guidewire was confirmed to be in appropriate position in AP and lateral planes, reaming was accomplished over this to allow for the proximal diameter of the nail. Guidewire was then removed. An 11 mm x 180 mm x 125 degree trochanteric gamma 3 nail was placed into appropriate position with positioning being confirmed in AP and lateral planes on the x-ray. It passed without difficulty. Guidewire was then passed through the jigging system into the femoral head. We wanted to be center or slightly inferior and posterior to center. Guidewire was placed into appropriate position. Once the guidewire was in appropriate position and this position was confirmed by x-ray. This was then measured and we chose a 10.5 mm x 90 mm lag screw. We reamed to allow for the lag screw to be placed. The 90 mm lag screw was then passed into the femoral head through the trochanteric nail. This was passed uneventfully and again position was confirmed in AP and lateral planes. Compression was obtained under fluoroscopic guidance. The set screw was then placed in position, tightened completely, and subsequently backed off one-eighth turn. The construct was left in position and attention was directed distally. Cannulas were again used to determine appropriate placement for the distal screw. This was placed in position without difficulty. It was measured off of the drill. The appropriate length screw was then obtained and placed in position without difficulty. Once the screw was in position, we confirmed appropriate placement of the components, and we removed the jigging system. Attention was then directed to closure. The hip was copiously irrigated with normal saline with antibiotics. Following this it was dried and closed. The tensor was closed with 0 Vicryl in an interrupted fashion. Subcutaneous tissues were closed with 2-0 Monocryl. Skin was closed with skin dg. This was followed by Xeroform gauze, Telfa and Tegaderm. The patient was returned the Recovery Room in satisfactory condition. There were no complications. The patient will be discharged to the floor for postoperative rehabilitation and pain management.
--- NOTE | 2019-10-25 15:12 | XR_ITS ---
WS: [id number] C-ARM RADIOGRAPHS RIGHT HIP; 4 IMAGES HISTORY: POST OP COMPARISON: 10/25/2019 Intraoperative imaging during intramedullary pancho and screw fixation of the femoral neck. Fracture in good alignment. XR/XR hip RT 2-3V wo/w pel* [id number] IMPRESSION: Intraoperative imaging during ORIF RIGHT femoral neck fracture.
[2019-10-25] MEDS: ceFAZolin 1,000 mg SDV 1000 MG IRRIGATION (15:19)
--- NOTE | 2019-10-25 15:20 | SUR.PHASEI ---
1513 PATIENT TO PACU AT THIS TIME FROM OR. RR EVEN AND UNLABORED. DRESSING TO RIGHT HIP. FABIAN CATH IN PLACE, DRAINING. PATIENT PLACED ON SIMPLE MASK AT 8L, SPO2 100%.
[2019-10-25] MEDS: fentaNYL 50 mcg/mL INJ 2mL IVP (15:25)
--- NOTE | 2019-10-25 15:29 | SUR.PHASEI ---
1529 PATIENT NOT TO BE SHAKING, DIFFICULTY GETTING BLOOD PRESSURES. WARM BLANKETS, AND WARMER APPLIED FOR COMFORT.
--- NOTE | 2019-10-25 16:34 | SUR.PHASEI ---
1619 PATIENT TO MED SURG AT THIS TIME. NO DISTRESS. RESTING COMFORTABLE ON BED. PATIENT DRESSING TO RIGHT HIP, CDI, WITH FIRST ICE IN PLACE.
--- NOTE | 2019-10-25 16:40 | PC.NURSE ---
PT ARRIVED TO ROOM FROM PACU. RESTING QUIETLY WITH EYES CLOSED. RESPIRATIONS: 21/MIN. NURSE AT BEDSIDE.
--- NOTE | 2019-10-25 17:18 | PC.NURSE ---
PT DROWSY FROM ANESTHESIA AND UNABLE TO TAKE EVENING MEDICATIONS AT THIS TIME. WILL CONTINUE TO MONITOR.
[2019-10-25 17:24] LABS: T3 Free 2.3 PG/ML (2.0-4.4)
--- NOTE | 2019-10-25 18:38 | NUR.SHIFT ---
Pt. arrived to unit this afternoon from PACU following surgery for a right hip fracture. Pt. has been drowsy since arrival to room. She has been resting quietly with eyes closed since arrival. Resp. 18, HR 71. Hip dressing has minimal bleeding. Pt. has no c/o pain and post-op vital signs are being taken per protocol. Will continue to monitor.
[2019-10-25 19:29] LABS: Estmated Average Glucose 151; Hemoglobin A1C 6.9 % (4.0-6.0)
[2019-10-25] MEDS: ipratropium-albuterol 3 mL Neb INHALATION (20:32)
[2019-10-25] MEDS: morphine 4 mg/mL SDV 1 mL 2 MG IVP (21:50)
[2019-10-25] MEDS: vancomycin 750 MG in sodium chloride 0.9% 250 ML 166 MG IV (23:22)
[2019-10-26] VITALS (17 sets, daily range): BP systolic 97–130; BP diastolic 58–65; PULSE 82–94; RESP 16–22; TEMP 36.7–37.7; O2SAT 94–99; BMI 30.9
[2019-10-26] MEDS: morphine 4 mg/mL SDV 1 mL 2 MG IVP ×3 (02:19→21:48)
[2019-10-26] MEDS: ondansetron 2 mg/ML SDV 2 mL 4 MG IVP (02:19)
[2019-10-26] MEDS: ipratropium-albuterol 3 mL Neb INHALATION ×4 (02:26→20:00)
--- NOTE | 2019-10-26 03:23 | PC.NURSE ---
pt had a mostly restful night, with intermittent episodes of anxiousness and confusion. She yelled out help me quite often and moaned very loudly. I attributed this for pain and mitigated as necessary. Pt also during one of these episodes, vomited and emises was on pillow and sheet. Its seems as though pt spit it out sufficiently, with no coughing, so no aspiration suspected. While trying to clean the patient, she became very agitated and withdrawn and rigid. It was clear she was not going to allow me to change her gown or sheets below her. Pt is unable to follow directions or answer questions with reliable answer, or to be reoriented. I question whether it is north to remove her catheter in the AM due to her level of disorientation, confusion, and recent fall.
[2019-10-26 03:50] LABS: Glucose Point of Care 202 mg/dL (70-110)
[2019-10-26] MEDS: sodium chlor 0.9% + KCl 20 mEq 20 MEQ/1,000 ML BAG 100 MEQ IV (05:25)
[2019-10-26 06:28] LABS: Basophils % 0.1 %; Hematocrit 26.2 % (37.0-47.0); Hemoglobin 7.8 g/dL (11.5-15.3); Lymphocytes # 0.8 10^3/uL (0.8-4.8); Lymphocytes % 8.1 %; Mean Corpuscular HGB Conc 29.8 g/dL (30.0-36.0); Mean Corpuscular Volume 97.4 fL (81-99); Mean Platelet Volume 10.2 fL (7.4-10.4); Monocytes # 0.9 10^3/uL (0.2-0.9); Monocytes % 10.2 %; Neutrophils # 7.5 10^3/uL (1.8-7.7); Neutrophils % 81.4 %; Nucleated Red Blood Cells % 0 %; Platelet Count 162 10^3/cmm (130-400); Red Blood Count 2.69 10^6/uL (4.1-5.3); Red Cell Distribution Width 13.2 % (12.1-15.1); White Blood Count 9.2 10^3/uL (4.0-10.0)
[2019-10-26 06:43] LABS: Alanine Aminotransferase 8 U/L (0-33); Alkaline Phosphatase 66 IU/L (35-105); Anion Gap 15.8 (5-19); Aspartate Amino Transferase 14 U/L (0-32); Blood Urea Nitrogen 34 mg/dL (8-23); Calcium 7.7 mg/dL (8.5-10.5); Carbon Dioxide 21 mmol/L (22-29); Chloride 109 mmol/L (98-107); Globulin 2.3 g/dL (1.3-4.6); Glucose 178 mg/dL (65-115); Magnesium 1.6 mg/dL (1.7-2.3); Osmolality Calculated 292 mOsm/kg (285-295); Phosphorus 3.4 mg/dL (2.5-4.5); Potassium 5.8 mmol/L (3.5-5.1); Sodium 140 mmol/L (136-145); Total Bilirubin 0.4 mg/dL (0.15-1.2); Total Protein 5.3 g/dL (6.6-8.7)
--- NOTE | 2019-10-26 09:13 | PC.CHAP ---
Pastoral Care Encounter/Spiritual Assessment Type of Contact [] Declined retort setter visit [] Patient/Family/Request visit [] Outpatient visit [] Follow-up visit [] Physician referral [] Code/Alert [x] Routine visit [] Staff referral [] Actively dying [] Patient sleeping [] Family support [] [] Out of room [] Palliative care [] [] Receiving care in room [] Pre-surgical visit [] Trauma [] Long length of stay [] ICU visit [] Other: Relational/Emotional Strength [] Patient feels connected with others/family/visitors/staff [] Distress [] Loneliness/isolation [] Abandonment Spirituality of Patient [] Person of Della [] Attends Latter Day of their Della [] Believes in Prayer [] Reads Bible or Pentecostal materials [] There are Spiritual issues to be addressed Judge Clerk Interventions [x] Prayer [] Active listening [] Non-anxious presence [] Spiritual/emotional support [] Crisis/trauma care [] Spiritual counseling [] Bereavement support [] Provided bereavement packet [] Provided Bible/devotional materials [] Provided toy/stuffed animal, coloring book to patient or family member [] Provided Communion [] Anointing/[place] [] Salvation [x] Completed spiritual assessment [] Other: Impact on Illness or Injury [] Angry [] Fearful [] Anxious [] Often cries [] Exhaustion [] Unable to work [] Unable to attend advent [] Unable to walk/stand [] Unable to read [] Unable to drive [] Unable to eat/drink [] Unable to sleep [] Unable to be with family [] Patient intubated [] Other: Summary Patient not responding to people. Patient refuses to eat. When asked for permission to pray, retort setter received a shoulder shrug, which was taken as ok. Time spent with patient 5 min
--- NOTE | 2019-10-26 09:16 | PM.PN ---
Subjective Subjective: Interval history: The patient was noted to be unresponsive to stimuli overnight, however, today, when I spoke with her, she did turn her head and look at me. She is still unable to verbally express herself. Vitals/I&O/Wt Last Vital Signs Temp 98.8 F 10/26/19 08:00 Pulse 85 10/26/19 08:34 Resp 17 10/26/19 08:28 BP 105/58 10/26/19 08:00 Pulse Ox 98 10/26/19 08:28 10/25/19 10/26/19 10/26/19 22:59 06:59 14:59 Intake Total 1100 / 1560 0 / 1560 Output Total 2200 / 2200 150 / 2350 375 / 375 Balance -1100 / -640 -150 / -790 -375 / -375 Weight last 48 hrs Weight 174 lb 8 oz Weight 160 lb 8 oz Physical Exam Narrative: EXAM NARRATIVE: Patient is very demented, and she is unable to participate with physical exam or answer questions. Const: COMMON NORMALS: average body habitus; negative for patient oriented x3 EXAM LIMITATIONS: altered mental status GENERAL APPEARANCE: in distress ORIENTATION/CONSCIOUSNESS: Yes confused; not oriented to person, not oriented to place and not oriented to time HENMT: COMMON NORMALS: normocephalic and atraumatic HEAD & SCALP: normocephalic and atraumatic Chest: COMMONS NORMALS: normal inspection of the chest Resp: COMMON NORMALS: normal respiratory effort EFFORT & INSPECTION: Yes symmetric chest movement Extremity: RIGHT LOWER EXTREMITY: Yes hip joint Right hip: Yes inspection (There is no significant swelling or ecchymosis.), Yes palpation (Hip is tender to palpation at the area of the surgical intervention.), Yes ROM (Painful to any range of motion) and Yes neurovascular exam (Intact to both motor and sensory function distally as best able to be evaluated) Neuro: COMMON NORMALS: negative for patient oriented x3 SENSORIUM/ORIENTATION: No oriented to person, No oriented to place and No oriented to time Skin: COMMON NORMALS: no rashes or lesions noted GENERAL SKIN EXAM: no rashes or lesions noted Urinary Catheter Management^: Campos: Cath Placed During This Visit: yes Reason for Continuing Indwelling Catheter: Required Immobilization for Trauma or Surgery or Anesthesia Urinary Catheter Date of Insertion: 10/25/19 Urinary Catheter Time of Insertion: 08:02 Data : 10/26/19 05:54 10/26/19 05:54 A&P Assessment and plan (1) Closed intertrochanteric fracture of right hip: The patient had x-rays consistent with a subcapital hip fracture. Intraoperatively, under exploration, there was felt to be too much of a an intertrochanteric component which was comminuted and extended into the subtrochanteric area to allow for a prosthesis. After evaluation, we were able to disimpact the femoral neck from the intertrochanteric area. And the decision was made to treat the intertrochanteric portion of the fracture with a trochanteric nail. In this way, we were able to stabilize the femoral neck and also the intertrochanteric subtrochanteric fractures. The patient was returned to the floor following her surgery. Overnight, she was not responsive to stimulus, but this morning, she did follow my voice and was responsive even though she was not able to effectively communicate. The incision is benign. Patient appears neurologically intact. She may be returned to her normal care home facility when medically appropriate. Status: Acute Qualifiers: Encounter type: initial encounter Fracture alignment: displaced Qualified Code(s): S72.141A - Displaced intertrochanteric fracture of right femur, initial encounter for closed fracture (2) Subcapital fracture of right hip: Secondary to findings intraoperatively, the fracture was found to have more significant comminuted intertrochanteric components then subcapital components. Therefore it was treated with a gamma nail. Status: Resolved Qualifiers: Encounter type: initial encounter Fracture type: closed Qualified Code(s): S72.011A - Unspecified intracapsular fracture of right femur, initial encounter for closed fracture Attestations Medical Necessity Statement*: Per medical service. Patient may be return to care home from orthopedic perspective. Coding Level of Care Code Acute Snack Bar Attendant for [facility] Diagnoses Closed intertrochanteric fracture of right hip S72.141A Encounter type: initial encounter Fracture alignment: displaced Subcapital fracture of right hip S72.011A Encounter type: initial encounter Fracture type: closed
--- NOTE | 2019-10-26 10:17 | PC.OT ---
OT jose attempted on 10/26/2019. Pt unable to follow simple 1-step directions, and does not respond to therapist's presence. Will re-attempt tomorrow if pt's cognition improves. Thank you. Stefanie Delgadillo MS, OTR/L
[2019-10-26 11:05] LABS: Glucose Point of Care 201 mg/dL (70-110)
--- NOTE | 2019-10-26 11:43 | PC.NURSE ---
PT REFUSES AM MEDS, DR GONZALEZ NOTIFIED, GIVEN OK TO HOLD THOSE MEDS.
[2019-10-26 13:06] LABS: Basophils % 0.1 %; Hematocrit 24.3 % (37.0-47.0); Hemoglobin 7.4 g/dL (11.5-15.3); Lymphocytes # 0.9 10^3/uL (0.8-4.8); Lymphocytes % 11.8 %; Mean Corpuscular HGB Conc 30.5 g/dL (30.0-36.0); Mean Corpuscular Hemoglobin 29.2 pg (28.0-34.0); Monocytes # 0.8 10^3/uL (0.2-0.9); Neutrophils # 5.9 10^3/uL (1.8-7.7); Neutrophils % 76.8 %; Nucleated Red Blood Cells % 0 %; Platelet Count 147 10^3/cmm (130-400); Red Blood Count 2.53 10^6/uL (4.1-5.3); Red Cell Distribution Width 13.2 % (12.1-15.1); White Blood Count 7.6 10^3/uL (4.0-10.0)
[2019-10-26 13:21] LABS: Alanine Aminotransferase 7 U/L (0-33); Albumin Level 3.1 g/dL (3.5-5.2); Alkaline Phosphatase 64 IU/L (35-105); Anion Gap 16.3 (5-19); Aspartate Amino Transferase 14 U/L (0-32); Blood Urea Nitrogen 36 mg/dL (8-23); Calcium 7.8 mg/dL (8.5-10.5); Carbon Dioxide 21 mmol/L (22-29); Chloride 111 mmol/L (98-107); Globulin 2.3 g/dL (1.3-4.6); Glucose 161 mg/dL (65-115); Osmolality Calculated 297 mOsm/kg (285-295); Potassium 5.3 mmol/L (3.5-5.1); Sodium 143 mmol/L (136-145); Total Bilirubin 0.3 mg/dL (0.15-1.2); Total Protein 5.4 g/dL (6.6-8.7)
[2019-10-26] MEDS: sodium chloride 0.9% 1,000 ML 100 ML IV (16:24)
[2019-10-26] MEDS: calcium carbonate 500 mg Chew Tablet 1000 MG PO (16:25)
[2019-10-26] MEDS: quetiapine 25 mg Tablet 50 MG PO ×2 (16:25→21:49)
[2019-10-26] MEDS: ALPRAZolam 0.25 mg Tablet PO (16:25)
[2019-10-26] MEDS: metoprolol succinate ER (24 HR) 50 mg Tablet PO (16:25)
[2019-10-26] MEDS: sennosides-docusate Tablet 2 TAB PO (16:26)
[2019-10-26] MEDS: iron polysaccharide complex 150 mg Capsule PO (16:26)
[2019-10-26 17:15] LABS: Glucose Point of Care 176 mg/dL (70-110)
[2019-10-26 18:04] LABS: Add Urine Microscopic? NO
[2019-10-26 18:35] LABS: Bilirubin Urine Neg (NEGATIVE); Blood Urine Neg (Negative); Glucose Urine UA Norm (Normal); Ketones Urine Negative (Negative); Leukocyte Esterase Urine Negative (Negative); Nitrate Urine Negative (Negative); Protein Urine Neg (Negative); Urine Appearance Clear (CLEAR); Urine Color Yellow (Yellow); Urobilinogen Urine Norm (Negative); pH Urine 5 (5-7)
--- NOTE | 2019-10-26 18:37 | PM.PN ---
Vitals/I&O/Wt Last Vital Signs Temp 99.6 F 10/26/19 15:33 Pulse 94 10/26/19 15:33 Resp 17 10/26/19 15:33 BP 97/58 10/26/19 15:33 Pulse Ox 94 10/26/19 15:33 10/26/19 10/26/19 10/26/19 06:59 14:59 22:59 Intake Total 100 / 1660 Output Total 150 / 2350 375 / 375 550 / 925 Balance -50 / -690 -375 / -375 -550 / -925 Weight last 48 hrs Weight 79.152 kg Weight 72.802 kg Physical Exam Narrative: EXAM NARRATIVE: Patient does not respond appropriately, moans, does not follow commands Const: COMMON NORMALS: no acute distress Neck/C-Spine: COMMON NORMALS: no JVD Resp: COMMON NORMALS: normal respiratory effort, No retractions, No use of accessory muscles and clear to auscultation bilaterally AUSCULTATION: clear to auscultation bilaterally Cardio: COMMON NORMALS: no JVD, regular rate, regular rhythm, S1 normal heart sound present and S2 normal heart sound present RATE: regular rate RHYTHM: regular rhythm HEART SOUNDS: S1 normal heart sound present and S2 normal heart sound present GI: COMMON NORMALS: Normal to inspection, nondistended, normoactive bowel sounds present, Soft to palpation, non-tender, No hepatosplenomegaly present, no masses and no bruits PALPATION: Yes Soft to palpation and Yes No hepatosplenomegaly present Extremity: COMMON NORMALS: capillary refill normal, no clubbing, cyanosis or edema, no calf tenderness and no pedal edema Urinary Catheter Management^: Campos: Cath Placed During This Visit: yes Reason for Continuing Indwelling Catheter: Required Immobilization for Trauma or Surgery or Anesthesia Urinary Catheter Date of Insertion: 10/25/19 Urinary Catheter Time of Insertion: 08:02 Data : 10/26/19 12:55 10/26/19 12:55 A&P Assessment and plan (1) Fracture of hip: Status: Acute Qualifiers: Encounter type: initial encounter Fracture type: closed Laterality: right Qualified Code(s): S72.001A - Fracture of unspecified part of neck of right femur, initial encounter for closed fracture (2) Type 2 diabetes mellitus: Status: Acute (3) HTN (hypertension): Status: Acute (4) Pacemaker: Status: Acute (5) Alzheimer disease: Status: Acute Additional A&P Information Fracture hip: Status post open reduction of intertrochanteric subtrochanteric and neck fractures, and conversion to use Valery trochanteric gamma nail Dr. Barnett on consult Hemoglobin down to 7.4, no overt signs of bleeding, 200 cc blood loss in surgery, monitor hemoglobin Creatinine up to 1.8, receiving IV hydration Pain control morphine Avoid oversedation. Physical therapy, perioperative antibiotics, anticoagulation as per orthopedics. Type 2 diabetes mellitus: Hold off on OHS. Insulin sliding scale. Hypertension: Blood pressure elevated in the ER most likely reactionary to pain. For now we will continue on home dose of metoprolol, lisinopril. Holding lisinopril History of sick sinus syndrome on pacemaker: Telemetry. Alzheimer's/dementia/agitation: Continue chronic medications like alprazolam, citalopram, Seroquel. Hypothyroidism Continue with home dose of levothyroxine. Mental status, patient is alert oriented x0, patient moans, withdraws from pain, does not make any sense, does not follow commands, according to nursing staff at the skilled nursing this is her baseline As per the records from the skilled nursing patient is full code. SCDs for DVT prophylaxis, full dose aspirin Dysphasia diet Attestations Medical Necessity Statement*: Patient requires hospitalization for hip fracture status post repair, postoperative anemia, acute kidney injury Coding Level of Care Code Acute Medical Language Specialist for [facility] Diagnoses Fracture of hip S72.001A Encounter type: initial encounter Fracture type: closed Laterality: right Type 2 diabetes mellitus E11.9 HTN (hypertension) I10 Pacemaker Z95.0 Alzheimer disease G30.9; F02.80
[2019-10-26 20:31] LABS: Glucose Point of Care 191 mg/dL (70-110)
[2019-10-26] MEDS: chlorhexidine gluconate 0.12% Btl 473 mL 30 ML MUCOUS MEM (21:49)
[2019-10-27] VITALS (12 sets, daily range): BP systolic 92–144; BP diastolic 42–70; PULSE 70–83; RESP 16–20; TEMP 36.3–37.2; O2SAT 94–99
[2019-10-27] MEDS: sodium chloride 0.9% 1,000 ML 100 ML IV (01:20)
[2019-10-27] MEDS: ipratropium-albuterol 3 mL Neb INHALATION ×2 (02:15→08:38)
[2019-10-27] MEDS: OLANZapine 10 mg VIAL IM (03:43)
[2019-10-27] MEDS: morphine 4 mg/mL SDV 1 mL 2 MG IVP ×2 (04:06→08:24)
[2019-10-27 05:03] LABS: Basophils % 0.2 %; Eosinophils % 0.1 %; Hematocrit 27.3 % (37.0-47.0); Hemoglobin 7.8 g/dL (11.5-15.3); Lymphocytes % 16.5 %; Mean Corpuscular HGB Conc 28.6 g/dL (30.0-36.0); Mean Corpuscular Hemoglobin 29.2 pg (28.0-34.0); Mean Corpuscular Volume 102.2 fL (81-99); Mean Platelet Volume 10.3 fL (7.4-10.4); Monocytes # 1.4 10^3/uL (0.2-0.9); Monocytes % 11.1 %; Neutrophils # 8.9 10^3/uL (1.8-7.7); Neutrophils % 71.9 %; Nucleated Red Blood Cells % 0 %; Platelet Count 184 10^3/cmm (130-400); Red Blood Count 2.67 10^6/uL (4.1-5.3); Red Cell Distribution Width 13.3 % (12.1-15.1); White Blood Count 12.3 10^3/uL (4.0-10.0)
[2019-10-27 05:33] LABS: Alanine Aminotransferase 9 U/L (0-33); Albumin Level 3.2 g/dL (3.5-5.2); Alkaline Phosphatase 68 IU/L (35-105); Anion Gap 18.6 (5-19); Aspartate Amino Transferase 15 U/L (0-32); Blood Urea Nitrogen 35 mg/dL (8-23); Calcium 8.2 mg/dL (8.5-10.5); Carbon Dioxide 19 mmol/L (22-29); Chloride 112 mmol/L (98-107); Globulin 2.6 g/dL (1.3-4.6); Glucose 171 mg/dL (65-115); Magnesium 1.9 mg/dL (1.7-2.3); Osmolality Calculated 301 mOsm/kg (285-295); Phosphorus 3.7 mg/dL (2.5-4.5); Potassium 4.6 mmol/L (3.5-5.1); Sodium 145 mmol/L (136-145); Total Bilirubin 0.4 mg/dL (0.15-1.2); Total Protein 5.8 g/dL (6.6-8.7)
[2019-10-27 06:27] LABS: Glucose Point of Care 168 mg/dL (70-110)
--- NOTE | 2019-10-27 07:18 | PC.OT ---
OT ORDERS RECEIVED. WILL HOLD OT EVALUATION DUE TO LOW HGB. WILL ATTEMPT AGAIN TOMORROW
[2019-10-27] MEDS: ondansetron 2 mg/ML SDV 2 mL 4 MG IVP (08:24)
[2019-10-27] MEDS: cholecalciferol (vitamin D3) 1,000 unit Tablet 1000 UNIT PO (08:49)
[2019-10-27] MEDS: levothyroxine 150 mcg Tablet PO (08:49)
[2019-10-27] MEDS: calcium carbonate 500 mg Chew Tablet 1000 MG PO (08:49)
[2019-10-27] MEDS: aspirin 325 mg EC Tablet PO (08:49)
[2019-10-27] MEDS: ALPRAZolam 0.25 mg Tablet PO (08:49)
[2019-10-27] MEDS: citalopram 20 mg Tablet 10 MG PO (08:50)
[2019-10-27] MEDS: metoprolol succinate ER (24 HR) 50 mg Tablet PO (08:50)
[2019-10-27] MEDS: TRAMadol 50 mg Tablet PO (08:55)
[2019-10-27] MEDS: multivitamin therapeutic Tablet 1 TAB PO (08:55)
[2019-10-27] MEDS: quetiapine 25 mg Tablet 50 MG PO (08:56)
[2019-10-27] MEDS: chlorhexidine gluconate 0.12% Btl 473 mL 30 ML MUCOUS MEM (08:57)
[2019-10-27] MEDS: sennosides-docusate Tablet 2 TAB PO (08:57)
[2019-10-27] MEDS: iron polysaccharide complex 150 mg Capsule PO (08:57)
[2019-10-27] MEDS: mupirocin oint 22 gm 1 APPLIC NASAL (08:58)
--- NOTE | 2019-10-27 09:00 | XR_ITS ---
WS: [id number] PORTABLE CHEST HISTORY: sob COMPARISON: 10/25/2019 Prior cardiac valve replacement. Dual lead LEFT subclavian pacer. Lung volumes are decreased. Atelectasis posterior to the LEFT heart. No pneumonia. No pleural effusio n or pneumothorax. Cardiac size: Mildly enlarged cardiac silhouette. Mediastinum/Aorta: Moderate atherosclerosis aorta. No osseous abnormality seen. XR/XR chest 1V portable [id number] IMPRESSION: No acute cardiopulmonary disease. Minimal atelectasis posterior to LEFT heart.
--- NOTE | 2019-10-27 10:55 | PM.DCS ---
Discharge Providers Date of Admission: 10/25/19 07:16 Date of Discharge: October 27, 2019 Attending Provider at Admission: Johnson Lo MD Attending Provider at Discharge: Kel Jackson MD Primary Care Provider: Carolyne Keith MD Diagnoses at Discharge Discharge Diagnosis (1) Fracture of hip: Status: Acute Qualifiers: Encounter type: initial encounter Fracture type: closed Laterality: right Qualified Code(s): S72.001A - Fracture of unspecified part of neck of right femur, initial encounter for closed fracture (2) Type 2 diabetes mellitus: Status: Acute (3) HTN (hypertension): Status: Acute (4) Pacemaker: Status: Acute (5) Alzheimer disease: Status: Acute Reason for Visit Reason for Visit: Reason For Visit: POSSIBLE HIP FRACTURE Hospital Course Discharge Summary: This is a 84-year-old female with a past medical history of sick sinus syndrome status post pacemaker placement, type 2 diabetes mellitus, hypertension, hypothyroidism, status post valve replacement on anticoagulation, dementia at baseline who [facility] a [facility], who presents [facility] after an unwitnessed fall According to [facility]iary staff, patient is oriented to person, has dementia, requires assistance for daily living, she had an unwitnessed fall She was admitted for a intertrochanteric fracture of the right femur, and a moderate scalp hematoma in the right frontal region For her intertrochanteric fracture of the right femur, intraoperatively there was too much of a intertrochanteric component which which was comminuted and extended into the subtrochanteric area to allow for prosthesis; patient was treated with a trochanteric nail, and had disimpaction of the femoral neck. Patient tolerated the surgical procedure well, discharged on aspirin for DVT prophylaxis and tramadol for pain control Patient was also found to have postoperative anemia, hemoglobin is low 7.8, some component related to her scalp hematoma, hemoglobin stabilized to 7.8 on discharge. correction is to recheck hemoglobin in 1 week, scalp hematoma was minimal during my examination prior to discharge For patient's acute kidney injury, creatinine was high as 1.8, on discharge creatinine was 1.5, she received IV hydration as inpatient, discharged on instructions for oral hydration, recheck kidney function in 1 week, hold nephrotoxic agents. Physical Exam Narrative: EXAM NARRATIVE: Alert to person, not oriented to time or place, does follow some commands Const: COMMON NORMALS: no acute distress HENMT: COMMON NORMALS: normocephalic HEAD & SCALP: normocephalic Neck/C-Spine: COMMON NORMALS: no JVD Resp: COMMON NORMALS: normal respiratory effort, No retractions, No use of accessory muscles and clear to auscultation bilaterally AUSCULTATION: clear to auscultation bilaterally Cardio: COMMON NORMALS: no JVD, regular rate, regular rhythm, S1 normal heart sound present and S2 normal heart sound present RATE: regular rate RHYTHM: regular rhythm HEART SOUNDS: S1 normal heart sound present and S2 normal heart sound present GI: COMMON NORMALS: Normal to inspection, nondistended, normoactive bowel sounds present, Soft to palpation, non-tender, No hepatosplenomegaly present, no masses and no bruits PALPATION: Yes Soft to palpation and Yes No hepatosplenomegaly present Urinary Catheter Management^: Campos: Cath Placed During This Visit: yes, but has since been removed by the nurse Reason for Continuing Indwelling Catheter: Acute Urinary Retention or Obstruction Urinary Catheter Date of Insertion: 10/27/19 Urinary Catheter Time of Insertion: 04:30 Date Urinary Catheter Removed: 10/26/19 Time Urinary Catheter Discontinued: 11:00 Discharge Data Data Completed and Pending: Completed Studies During Hospitalization Category Date Time Status CT cervical spine wo con [CT cervic al spin wo con* Cat Scan 10/25/19 06:18 Completed [id number]] Urgent CT head wo con* 7 0450 Urgent Cat Scan 10/25/19 06:08 Completed XR chest 1V moe ble [id number] Routine Exams 10/27/19 09:00 Completed XR chest 1V moe ble [id number] Stat Exams 10/25/19 07:33 Completed XR hip RT 2-3V wo /w pel* [id number] Rout ine Exams 10/25/19 15:12 Completed XR hip RT 2-3V wo /w pel* [id number] Stat Exams 10/25/19 06:10 Completed Pending at discharge Category Date Time Status Complete Blood Co unt w/Auto AM LABS Lab 10/28/19 04:00 Ordered Complete Blood Co unt w/Auto AM LABS Lab 10/29/19 04:00 Ordered Comprehensive Met abolic Panel AM LA BS Lab 10/28/19 04:00 Ordered Comprehensive Met abolic Panel AM LA BS Lab 10/29/19 04:00 Ordered Magnesium AM LABS Lab 10/28/19 04:00 Ordered Magnesium AM LABS Lab 10/29/19 04:00 Ordered Phosphorus AM LAB S Lab 10/28/19 04:00 Ordered Phosphorus AM LAB S Lab 10/29/19 04:00 Ordered Labs from last 24 hours 10/27/19 10/27/19 10/27/19 06:20 04:56 04:56 WBC 12.3 H RBC 2.67 L Hgb 7.8 L Hct 27.3 L MCV 102.2 H D MCH 29.2 MCHC 28.6 L D RDW 13.3 Plt Count 184 MPV 10.3 Neut % (Auto) 71.9 Lymph % (Auto) 16.5 [place] % (Auto) 11.1 Eos % (Auto) 0.1 Baso % (Auto) 0.2 Neut # (Auto) 8.9 H Lymph # (Auto) 2.0 [place] # (Auto) 1.4 H Eos # (Auto) 0.0 Baso # (Auto) 0.0 Nucleated RBC % (a uto) 0 Nucleated RBCs # 0.0 Sodium 145 Potassium 4.6 Chloride 112 H Carbon Dioxide 19 L Anion Gap 18.6 BUN 35 H Creatinine 1.5 H Glucose 171 H POC Glucose 168 Calculated Osmolal ity 301 H Calcium 8.2 L Phosphorus 3.7 Magnesium 1.9 Total Bilirubin 0.4 AST 15 ALT 9 Alkaline Phosphata se 68 Total Protein 5.8 L Albumin 3.2 L Globulin 2.6 Urine Color Urine Appearance Urine pH Ur Specific Gravit y Urine Protein Urine Glucose (UA) Urine Ketones Urine Blood Urine Nitrate Urine Bilirubin Urine Urobilinogen Ur Leukocyte Christie ase 10/26/19 10/26/19 10/26/19 20:16 17:45 17:04 WBC RBC Hgb Hct MCV MCH MCHC RDW Plt Count MPV Neut % (Auto) Lymph % (Auto) [place] % (Auto) Eos % (Auto) Baso % (Auto) Neut # (Auto) Lymph # (Auto) [place] # (Auto) Eos # (Auto) Baso # (Auto) Nucleated RBC % (a uto) Nucleated RBCs # Sodium Potassium Chloride Carbon Dioxide Anion Gap BUN Creatinine Glucose POC Glucose 191 176 Calculated Osmolal ity Calcium Phosphorus Magnesium Total Bilirubin AST ALT Alkaline Phosphata se Total Protein Albumin Globulin Urine Color Yellow Urine Appearance Clear Urine pH 5 Ur Specific Gravit y 1.020 Urine Protein Neg Urine Glucose (UA) Norm Urine Ketones Negative Urine Blood Neg Urine Nitrate Negative Urine Bilirubin Neg Urine Urobilinogen Norm Ur Leukocyte Christie ase Negative 10/26/19 10/26/19 10/26/19 12:55 12:55 10:52 WBC 7.6 RBC 2.53 L Hgb 7.4 L Hct 24.3 L MCV 96.0 MCH 29.2 MCHC 30.5 RDW 13.2 Plt Count 147 MPV 10.0 Neut % (Auto) 76.8 Lymph % (Auto) 11.8 [place] % (Auto) 11.0 Eos % (Auto) 0.0 Baso % (Auto) 0.1 Neut # (Auto) 5.9 Lymph # (Auto) 0.9 [place] # (Auto) 0.8 Eos # (Auto) 0.0 Baso # (Auto) 0.0 Nucleated RBC % (a uto) 0 Nucleated RBCs # 0.0 Sodium 143 Potassium 5.3 H Chloride 111 H Carbon Dioxide 21 L Anion Gap 16.3 BUN 36 H Creatinine 1.8 H Glucose 161 H POC Glucose 201 Calculated Osmolal ity 297 H Calcium 7.8 L Phosphorus Magnesium Total Bilirubin 0.3 AST 14 ALT 7 Alkaline Phosphata se 64 Total Protein 5.4 L Albumin 3.1 L Globulin 2.3 Urine Color Urine Appearance Urine pH Ur Specific Gravit y Urine Protein Urine Glucose (UA) Urine Ketones Urine Blood Urine Nitrate Urine Bilirubin Urine Urobilinogen Ur Leukocyte Christie ase Vitals: Last Vital Signs Temp 98.9 F 10/27/19 07:42 Pulse 75 10/27/19 08:45 Resp 20 H 10/27/19 08:45 BP 92/42 10/27/19 07:42 Pulse Ox 97 10/27/19 08:45 Discharge Plan Discharge Patient Disposition: Xfer SNF Condition: Stable Prescriptions: New Ferrex 150 150 mg iron Capsule 150 mg PO BIDWM 30 Days Qty: 60 RF: 0 sennosides-docusate sodium 8.6-50 mg Tablet 2 tab PO BID 30 Days Qty: 120 RF: 0 aspirin 325 mg Tablet,Delayed Release (Dr/Ec) 325 mg PO DAILY 30 Days Qty: 30 RF: 0 Vitamin D3 25 mcg (1,000 unit) Tablet 1,000 unit PO DAILY 30 Days Qty: 30 RF: 0 Thera 400 mcg Tablet 1 tab PO DAILY 30 Days RF: 0 metformin 1,000 mg tablet 500 mg PO DAILY 30 Days Qty: 30 RF: 0 Continued acetaminophen 325 mg capsule 650 mg PO Q6H PRN (Reason: pain) RF: 0 citalopram [Celexa] 10 mg tablet 10 mg PO ONCE RF: 0 bisacodyl 10 mg suppository 10 mg WI ONCE RF: 0 metoprolol succinate 50 mg tablet extended release 24 hr 50 mg PO BID RF: 0 pantoprazole 40 mg tablet,delayed release (DR/EC) 40 mg PO ONCE RF: 0 quetiapine [Seroquel] 50 mg tablet 50 mg PO TID RF: 0 tramadol [Ultram] 50 mg tablet 50 mg PO Q6H PRN (Reason: Pain, Moderate) RF: 0 alprazolam [Xanax] 0.25 mg tablet 0.25 mg PO BID RF: 0 alprazolam [Xanax] 0.5 mg tablet 0.5 mg PO .PRN RF: 0 (DME) Fast Form Cock up Splint See Rx Instructions .ROUTE .MEDSUPPLY Qty: 1 RF: 0 Fleet Enema 19-7 gram/118 mL Enema 118 ml WI DAILY PRN (Reason: Pain, Mild) RF: 0 Minerin Creme Cream 1 applic TOPICAL BID RF: 0 MediHoney (honey) 80 % Gel 1 applic TOPICAL DAILY RF: 0 levothyroxine 150 mcg Tablet 150 mcg PO DAILY RF: 0 Held lisinopril 10 mg tablet 10 mg PO BID RF: 0 Hold Instructions: Resume on 11/09/19. HOLD FOR AT LEASt WEEK< RESUME WHEN creatinine returns o baseline Discontinued alprazolam [Xanax] 0.5 mg tablet 0.5 mg PO ONCE RF: 0 Discharge Orders: Discharge Order (Routine); Ordered 10/26/19 Ordered By: Rose Barnett Other Ambulatory Orders: Complete Blood Count w/Auto (Routine) Timeframe: 1 Week Location: Determined by Patient Ordered By: Kel Jackson Comprehensive Metabolic Panel (Routine) Timeframe: 1 Week Facility: [facility] - Location: Lab - Main Lab Ordered By: Kel Jackson Referrals: Carolyne Keith MD [Primary Care Provider] - Rose Barnett MD [Physician] - 11/16/19 9:00 am (Please call Saturday to set up a follow up appointment ) Discharge Diet: Cardiac Discharge Activity: Limit activity as instructed and As per PT/OT instructions Patient Instructions: Alzheimer Disease (GEN) Activity Restrictions/Additional Instructions: Patient made touchdown weightbearing with transfers. Discharge Attestations Time Spent in Discharge Care*: less than 30 min Quality Metrics Clinical Quality Measures During this hospital stay, did patient experience: None Coding Level of Care Code Acute Lining Mechanic for Crystal Fwany Diagnoses Fracture of hip S72.001A Encounter type: initial encounter Fracture type: closed Laterality: right Type 2 diabetes mellitus E11.9 HTN (hypertension) I10 Pacemaker Z95.0 Alzheimer disease G30.9; F02.80
[2019-10-27 11:17] LABS: Glucose Point of Care 155 mg/dL (70-110)
--- NOTE | 2019-10-27 15:37 | PC.NURSE ---
patient taken to [facility] via gurney by EMS
== END 2019-10-27 15:37 | disposition skilled nursing facility (03) | DRG 481 ==
LOC: ER 09:10 → MEDSURG 09:32
PROVIDERS: Emergency Medicine; Specialist; Admitting Provider Student in an Organized Health Care Education/Training Program; PCP Family Medicine; Visit Provider Family Medicine
PROC: 0QH606Z Insertion of Intramedullary Internal Fixation Device into Right Upper Femur, Open Approach (ICD-10-PCS; CPT 27245; principal; 2019-10-25 12:00)
DX: S72.141A Displaced intertrochanteric fracture of right femur, initial encounter for closed fracture (principal); N17.9 Acute kidney failure, unspecified; D62 Acute posthemorrhagic anemia; W06.XXXA Fall from bed, initial encounter; Y92.129 Unspecified place in nursing home as the place of occurrence of the external cause; Z95.0 Presence of cardiac pacemaker; Z86.73 Personal history of transient ischemic attack (TIA), and cerebral infarction without residual deficits; E11.9 Type 2 diabetes mellitus without complications; I10 Essential (primary) hypertension; E03.9 Hypothyroidism, unspecified; Z95.2 Presence of prosthetic heart valve; G30.9 Alzheimer's disease, unspecified; F02.80 Dementia in other diseases classified elsewhere, unspecified severity, without behavioral disturbance, psychotic disturbance, mood disturbance, and anxiety; S00.03XA Contusion of scalp, initial encounter; M19.90 Unspecified osteoarthritis, unspecified site; I25.2 Old myocardial infarction
CPT/HCPCS: 12345; 36415; 36416; 51702; 70450; 71045; 72125; 73502; 76000; 80053; 81003; 82962; 83036; 83540; 83550; 83735; 83880; 84100; 84439; 84443; 84481; 85007; 85025; 85027; 85610; 86850; 86900; 94640; 94664; 96372; 96375; 97110; 97161; 99283; C1713; J0131; J0690; J1170; J2270; J2370; J2405; J2704; J2710; J3010; J3370; J3490; J7030; J7050

== ENCOUNTER 2019-10-28 14:59 | Outpatient (CLI) | payer OTHER, MEDICARE, MEDICAID, SELFPAY ==
[2019-10-28 19:29] VITALS: BP 132/77; PULSE 77; RESP 16; TEMP 37.3; O2SAT 92
[2019-10-28 19:45] VITALS: BP 139/66; PULSE 70; RESP 18; TEMP 37.2
[2019-10-28 20:00] VITALS: BP 136/72; PULSE 97; RESP 16; TEMP 37.2
[2019-10-28 21:00] VITALS: BP 143/81; PULSE 76; RESP 16; TEMP 37.1; O2SAT 97
[2019-10-28] MEDS: sodium chloride 0.9% (100 ml) 100 ML (21:32)
[2019-10-28 23:05] VITALS: BP 146/77; PULSE 77; RESP 16; TEMP 37.1; O2SAT 97
[2019-10-29 00:19] VITALS: BP 137/80; PULSE 72; RESP 16; TEMP 37.6; O2SAT 94
[2019-10-29 00:35] VITALS: BP 142/72; PULSE 88; RESP 16; TEMP 37.7; O2SAT 96
[2019-10-29] MEDS: sodium chloride 0.9% (100 ml) 100 ML (00:42)
[2019-10-29 01:05] VITALS: BP 138/82; PULSE 78; RESP 14; TEMP 37.2; O2SAT 94
[2019-10-29 02:10] VITALS: BP 148/72; PULSE 71; RESP 16; TEMP 37.2; O2SAT 96
[2019-10-29 03:10] VITALS: BP 150/82; PULSE 78; RESP 16; TEMP 37.7
[2019-10-29 04:58] LABS: Hematocrit 27.4 % (37.0-47.0); Hemoglobin 8.6 g/dL (11.5-15.3)
--- NOTE | 2019-10-29 05:24 | PC.NURSE ---
Report called to Tiffanie DO at [facility] and updated her on Mrs Hoffmann H&H and vitals signs and general status. Transport forms faxed to [facility]
--- NOTE | 2019-10-29 11:22 | PC.CHAP ---
Pastoral Care Encounter/Spiritual Assessment Type of Contact [] Declined library specialist visit [] Patient/Family/Request visit [] Outpatient visit [] Follow-up visit [] Physician referral [] Code/Alert [] Routine visit [] Staff referral [] Actively dying [] Patient sleeping [] Family support [] [x] Out of room [] Palliative care [] [] Receiving care in room [] Pre-surgical visit [] Trauma [] Long length of stay [] ICU visit [] Other: Relational/Emotional Strength [] Patient feels connected with others/family/visitors/staff [] Distress [] Loneliness/isolation [] Abandonment Spirituality of Patient [] Person of Della [] Attends Yarsanism of their Della [] Believes in Prayer [] Reads Bible or Rastafarian materials [] There are Spiritual issues to be addressed Photogravure Press Operator Interventions [] Prayer [] Active listening [] Non-anxious presence [] Spiritual/emotional support [] Crisis/trauma care [] Spiritual counseling [] Bereavement support [] Provided bereavement packet [] Provided Bible/devotional materials [] Provided toy/stuffed animal, coloring book to patient or family member [] Provided Communion [] Anointing/[place] [] Salvation [] Completed spiritual assessment [] Other: Impact on Illness or Injury [] Angry [] Fearful [] Anxious [] Often cries [] Exhaustion [] Unable to work [] Unable to attend judaism [] Unable to walk/stand [] Unable to read [] Unable to drive [] Unable to eat/drink [] Unable to sleep [] Unable to be with family [] Patient intubated [] Other: Summary Time spent with patient
== END 2019-10-29 07:30 | disposition home or self-care (01) ==
LOC: GILAB 15:06 → MEDSURG 15:07
PROVIDERS: PCP Family Medicine; Visit Provider Nurse Practitioner Family
DX: Z46.89 Encounter for fitting and adjustment of other specified devices (principal); S52.572D Other intraarticular fracture of lower end of left radius, subsequent encounter for closed fracture with routine healing; X58.XXXD Exposure to other specified factors, subsequent encounter
CPT/HCPCS: 36415; 36430; 85014; 85018; 86850; 86900; 86920; P9016